=== PATIENT | male | born 2000 | race Hispanic/Latino ===

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

== ENCOUNTER 2022-02-14 03:24 | Emergency (ER) | payer OTHER ==
[~2022-02-14] VITALS: Ht 182.9 cm; Wt 97.0 kg
[~2022-02-14 03:24] MED LIST changes: +TORADOL PO
[2022-02-14 04:15] VITALS: BP 122/83
== END 2022-02-14 04:15 | disposition home or self-care (01) ==
LOC: ED 03:24
DX: T16.2XXA Foreign body in left ear, initial encounter (principal); X58.XXXA Exposure to other specified factors, initial encounter

== ENCOUNTER 2024-11-18 15:16 | Emergency (ER) | payer SELFPAY ==
[~2024-11-18] VITALS: Ht 182.9 cm; Wt 89.0 kg
[2024-11-18 15:49] VITALS: BP 136/89
== END 2024-11-18 16:37 | disposition left against medical advice (07) | DRG 951 ==
LOC: ED 15:16 → LWOBS 16:31 → ED 16:37
DX: Z53.21 Procedure and treatment not carried out due to patient leaving prior to being seen by health care provider (principal)